=== PATIENT | male | born 1960 | race Caucasian/White ===

== ENCOUNTER → 2021-08-11 | Outpatient (CLI) | payer OTHER ==
--- NOTE | 2021-08-11 10:41 | RAD ---
Left lower extremity arterial duplex Doppler examination spectral waveform analysis and ankle-brachia l disease HISTORY: Left lower extremity ulcer and pain Sonographic examination of left pleural effusion for the multiple static images were obtained. In add ition color Doppler spine as well as her chart waveform spectral analysis. In addition ankle and brac hial blood pressures were obtained and indices were calculated. FINDINGS: There is normal waveform morphology throughout the left lower artery. There is no abnormally high courtney ocities. Ankle brachial indices: The indices are as follows: Posterior tibial artery: 1.4 on the right and 1.4 on the left Dorsalis pedis: 1.2 on the right and 1.4 on the left. Overall ankle brachial indices: 1.4 on the right and 1.4 on the left. IMPRESSION: 1. Normal arterial examination. 2. Normal ankle brachial indices. Electronically signed by: Demetrius Stock III, MD (08/11/2021 10:38 AM) [facility]
== END ==
LOC: US 06:33
PROVIDERS: ATTEND Nurse Practitioner
DX: I73.9 Peripheral vascular disease, unspecified (principal); I83.029 Varicose veins of left lower extremity with ulcer of unspecified site; R25.2 Cramp and spasm
CPT/HCPCS: 93922; 93926